=== PATIENT | female | born 1935 | race Caucasian/White ===

== ENCOUNTER 2020-04-28 17:43 | Emergency (ER) | payer MEDICARE, OTHER ==
[~2020-04-28 17:43] MED LIST: ALL DAY ALLERGY10 M2 PO; ASPIRIN CHEWABL81 MG PO; ASPIRIN EC81 MG PO; BUSPAR5 MG PO; CARAFATE1 GM PO; CLARITIN10 MG PO; CRANBERRY200 MG PO; DIAZEPAM 2MG TAB2 MG PO; DIVIGEL1 GM VG; ELMIRON100 MG PO; ESTRACE1 MG VG; FENOFIBRATE48 MG PO; FLUOROMETHOLONE; GABAPENTIN300 MG PO; HCTZ12.5 MG PO; IMODIUM2 MG PO; IRON325 M1 PO; LEXAPRO 10MG TA10 MG PO; LISINOPRIL-HCT1 EACH PO; MACROBID100 MG PO; MAG-OXIDE 400M400 MG PO; METFORMIN HCL500 MG PO; METRONIDAZOLE500 MG PO; NAMENDA 10MG TA10 MG PO; NEURONTIN100 MG PO; NORVASC5 MG PO; OMEPRAZOLE 20MG20 MG PO; PRINIVIL10 MG PO; PRINIVIL20 MG PO; PROBIOTIC1 EAC1 PO; PROMETHEGA12.5 MG/SU PR; SUCRALFATE1 GM/10 ML PO; TOPROL XL 25MG25 MG PO; VITAMIN D-32000 UNIT PO; VITAMIN D22000 UNIT PO; VITAMIN D3 PO; ZANTAC150 MG PO; ZESTRIL5 MG PO; ZIOPTAN 0.00151 EACH AU; ZIOPTAN 0.00151 EACH EYEBOTH; ZIOPTAN 0.00151 EACH OU; ZOFRAN8 MG PO
[2020-04-28 20:02] LABS: BILIRUBIN NEGATIVE (NEGATIVE); BLOOD TRACE-INTACT Ery/uL (NEGATIVE); CLARITY CLEAR (CLEAR); COLOR YELLOW (YELLOW); GLUCOSE (U) NORMAL (NORMAL); LEUKOCYTES NEGATIVE Leu/uL (NEGATIVE); NITRITE NEGATIVE (NEGATIVE); PROTEIN NEGATIVE (NEGATIVE); UROBILINOGEN 0.2 mg/dL (0.2-1.0)
[2020-04-28 20:23] LABS: BACTERIA 4+
[2020-04-28 21:13] LABS: BASOPHIL 0.4 % (0-2); EOSINOPHIL 0.1 % (0-7); HCT 37.2 % (37.0-47.0); HGB 12.5 g/dl (12.5-16.0); LYMPHOCYTE 37.5 % (15-48); MCH 29.5 pg (25.0-31.0); MCHC 33.6 g/dL (32.0-36.0); MCV 87.7 fL (78.0-100.0); MONOCYTE 8.5 % (0-12); MPV 10.1 fL (6.0-9.5); NEUTROPHIL 53.4 % (41-80); NRBC 0; PLT 263 K/uL (150-400); RBC 4.24 M/uL (4.20-5.40); RDW 12.2 % (11.5-14.0)
[2020-04-28 21:50] LABS: CORONAVIRUS 2019 SARS-COV-2 NEGATIVE (NEGATIVE); INFLUENZA A NAA NEGATIVE (NEGATIVE)
[2020-04-28 22:39] LABS: ALBUMIN 3.9 g/dL (3.4-5.0); BILIRUBIN - TOTAL 0.3 mg/dL (0.2-1.0); CREATININE 0.81 mg/dL (0.51-0.95); GLOBULIN (CALCULATION) 3.2 g/dL; POTASSIUM 4.1 mmol/L (3.5-5.1); TOTAL PROTEIN 7.1 g/dL (6.4-8.2)
== END 2020-04-29 00:55 | disposition home or self-care (01) ==
LOC: FER 17:43
PROVIDERS: Emergency Medicine
DX: R41.0 Disorientation, unspecified (principal); F03.90 Unspecified dementia, unspecified severity, without behavioral disturbance, psychotic disturbance, mood disturbance, and anxiety; I48.91 Unspecified atrial fibrillation; E11.9 Type 2 diabetes mellitus without complications; Z88.1 Allergy status to other antibiotic agents; Z20.822 Contact with and (suspected) exposure to COVID-19
CPT/HCPCS: 36415; 70450; 71045; 80053; 81001; 85025; 87088; U0002

== ENCOUNTER 2020-08-18 15:36 | Emergency (ER) | payer MEDICARE, OTHER ==
[2020-08-18 17:45] LABS: BASOPHIL 0.1 % (0-2); EOSINOPHIL 0.1 % (0-7); HCT 36.9 % (37.0-47.0); HGB 12.5 g/dl (12.5-16.0); LYMPHOCYTE 23.4 % (15-48); MCH 30.2 pg (25.0-31.0); MCHC 33.9 g/dL (32.0-36.0); MCV 89.1 fL (78.0-100.0); MONOCYTE 7.2 % (0-12); MPV 10.3 fL (6.0-9.5); NEUTROPHIL 68.8 % (41-80); NRBC 0; PLT 262 K/uL (150-400); RBC 4.14 M/uL (4.20-5.40); RDW 11.9 % (11.5-14.0)
[2020-08-18 17:46] LABS: BILIRUBIN NEGATIVE (NEGATIVE); BLOOD NEGATIVE Ery/uL (NEGATIVE); CLARITY CLEAR (CLEAR); COLOR YELLOW (YELLOW); GLUCOSE (U) NORMAL (NORMAL); LEUKOCYTES 2+ Leu/uL (NEGATIVE); NITRITE NEGATIVE (NEGATIVE); PROTEIN NEGATIVE (NEGATIVE); SPECIFIC GRAVITY 1.015 (1.001-1.030); UROBILINOGEN 0.2 mg/dL (0.2-1.0); pH 7.5 (5.0-9.0)
[2020-08-18 17:53] LABS: BACTERIA 3+; SQUAMOUS EPITHELIAL CELLS RARE; URINARY RBC RARE
[2020-08-18 18:21] LABS: CREATININE 0.92 mg/dL (0.51-0.95); POTASSIUM 4.3 mmol/L (3.5-5.1)
[2020-08-18] MEDS ORDERED: LEVAQUIN500 MG PO (18:49)
== END 2020-08-18 19:31 | disposition home or self-care (01) ==
LOC: FER 15:36
PROVIDERS: Nurse Practitioner Family
DX: N39.0 Urinary tract infection, site not specified (principal); E11.9 Type 2 diabetes mellitus without complications; F03.90 Unspecified dementia, unspecified severity, without behavioral disturbance, psychotic disturbance, mood disturbance, and anxiety; E78.5 Hyperlipidemia, unspecified; Z79.899 Other long term (current) drug therapy; Z79.82 Long term (current) use of aspirin; Z88.2 Allergy status to sulfonamides; Z91.011 Allergy to milk products; Z79.84 Long term (current) use of oral hypoglycemic drugs
CPT/HCPCS: 36415; 80048; 81001; 85025; 87076; 87088; 87186; 99284; J7030

== ENCOUNTER 2020-10-30 08:47 | Emergency (ER) | payer MEDICARE, OTHER ==
[~2020-10-30 08:47] MED LIST changes: +LEVAQUIN500 MG PO
[2020-10-30 09:37] LABS: BASOPHIL 0.3 % (0-2); EOSINOPHIL 0.1 % (0-7); HCT 37.2 % (37.0-47.0); HGB 12.5 g/dl (12.5-16.0); LYMPHOCYTE 14.6 % (15-48); MCH 29.5 pg (25.0-31.0); MCHC 33.6 g/dL (32.0-36.0); MCV 87.7 fL (78.0-100.0); MONOCYTE 6.5 % (0-12); MPV 9.5 fL (6.0-9.5); NEUTROPHIL 78.1 % (41-80); NRBC 0; PLT 283 K/uL (150-400); RBC 4.24 M/uL (4.20-5.40); RDW 11.8 % (11.5-14.0); WBC 7.4 K/uL (4.0-10.5)
[2020-10-30 09:48] LABS: INR 1.07 (0.9-1.2); PROTHROMBIN TIME 13.3 SECONDS (11.8-13.4)
[2020-10-30 09:55] LABS: ALBUMIN 3.8 g/dL (3.4-5.0); BILIRUBIN - TOTAL 0.4 mg/dL (0.2-1.0); BUN/CREAT RATIO (CALC) 11.8 RATIO; CREATININE 0.85 mg/dL (0.51-0.95); GLOBULIN (CALCULATION) 3.3 g/dL; TOTAL PROTEIN 7.1 g/dL (6.4-8.2)
[2020-10-30 10:32] LABS: LACTIC ACID 0.9 mmol/L (0.4-1.9)
[2020-10-30 10:53] LABS: BILIRUBIN NEGATIVE (NEGATIVE); BLOOD NEGATIVE Ery/uL (NEGATIVE); CLARITY CLEAR (CLEAR); GLUCOSE (U) TRACE mg/dL (NORMAL); LEUKOCYTES TRACE Leu/uL (NEGATIVE); NITRITE POSITIVE (NEGATIVE); PROTEIN TRACE (LOW) mg/dL (NEGATIVE); SPECIFIC GRAVITY 1.015 (1.001-1.030)
[2020-10-30 10:54] LABS: COLOR ORANGE (YELLOW)
[2020-10-30 11:02] LABS: AMORPHOUS PHOSPHATE CRYSTALS MODERATE; BACTERIA 1+
== END 2020-10-30 13:57 | disposition home or self-care (01) ==
LOC: FER 08:47 → FMS 12:23 → FER 12:23
PROVIDERS: Emergency Medicine
DX: N39.0 Urinary tract infection, site not specified (principal); I95.1 Orthostatic hypotension; I10 Essential (primary) hypertension; E11.9 Type 2 diabetes mellitus without complications; F03.90 Unspecified dementia, unspecified severity, without behavioral disturbance, psychotic disturbance, mood disturbance, and anxiety; Z90.49 Acquired absence of other specified parts of digestive tract; Z90.710 Acquired absence of both cervix and uterus
CPT/HCPCS: 36415; 71045; 80053; 81001; 83605; 84484; 85025; 85610; 85730; 87040; 87088; 93005; J7040

== ENCOUNTER 2021-07-25 21:58 | Inpatient (IN) | payer MEDICARE, OTHER ==
[~2021-07-25] VITALS: Ht 157.5 cm; Wt 54.5 kg
[2021-07-25 22:27] LABS: BASOPHIL 0.4 % (0-2); EOSINOPHIL 1.2 % (0-7); HCT 34.9 % (37.0-47.0); HGB 11.4 g/dl (12.5-16.0); LYMPHOCYTE 35.8 % (15-48); MCH 28.9 pg (25.0-31.0); MCHC 32.7 g/dL (32.0-36.0); MCV 88.4 fL (78.0-100.0); MONOCYTE 8.2 % (0-12); MPV 9.7 fL (6.0-9.5); NEUTROPHIL 53.8 % (41-80); NRBC 0; PLT 275 K/uL (150-400); RBC 3.95 M/uL (4.20-5.40); RDW 13.1 % (11.5-14.0); WBC 8.5 K/uL (4.0-10.5)
[2021-07-25 22:49] LABS: BILIRUBIN NEGATIVE (NEGATIVE); BLOOD NEGATIVE Ery/uL (NEGATIVE); CLARITY CLEAR (CLEAR); COLOR YELLOW (YELLOW); GLUCOSE (U) NORMAL (NORMAL); LEUKOCYTES TRACE Leu/uL (NEGATIVE); NITRITE POSITIVE (NEGATIVE); PROTEIN NEGATIVE (NEGATIVE); UROBILINOGEN 0.2 mg/dL (0.2-1.0)
[2021-07-25 22:55] LABS: BACTERIA 2+; URINARY RBC RARE
[2021-07-25 23:16] LABS: ALBUMIN 2.7 g/dL (3.4-5.0); BILIRUBIN - TOTAL 0.3 mg/dL (0.2-1.0); BUN/CREAT RATIO (CALC) 24.2 RATIO; CREATININE 0.95 mg/dL (0.51-0.95); GLOBULIN (CALCULATION) 3.8 g/dL; POTASSIUM 4.4 mmol/L (3.5-5.1); TOTAL PROTEIN 6.5 g/dL (6.4-8.2)
[2021-07-25 23:34] LABS: CORONAVIRUS 2019 SARS-COV-2 NEGATIVE (NEGATIVE); INFLUENZA A NAA NEGATIVE (NEGATIVE)
[2021-07-26] MEDS ORDERED: COZAAR50 MG PO (01:45)
[2021-07-26] MEDS ORDERED: NAMENDA 10MG TA10 MG PO (01:46)
[2021-07-26] MEDS ORDERED: MAG-OXIDE 400M400 MG PO (01:48)
[2021-07-26] MEDS ORDERED: VITAMIN B-121000 MC1 PO ×2 (01:48→01:57)
[2021-07-26] MEDS ORDERED: AZO CRANBERRY1 EAC1 PO (01:49)
[2021-07-26] MEDS ORDERED: FEOSOL325 MG PO (01:50)
[2021-07-26] MEDS ORDERED: ASPIRIN EC81 MG PO (01:51)
[2021-07-26] MEDS ORDERED: PROBIOTIC PLUS1 EACH PO (01:53)
[2021-07-26] MEDS ORDERED: PROBIOTIC250 MG PO (01:54)
[2021-07-26] MEDS ORDERED: METFORMIN HCL500 MG PO (01:56)
[2021-07-26] MEDS ORDERED: METFORMIN HCL500 M1 PO (01:59)
[2021-07-26] MEDS ORDERED: FENOFIBRATE48 MG PO (01:59)
[2021-07-26] MEDS ORDERED: MELATONIN5 M2 PO (02:02)
[2021-07-26] MEDS ORDERED: KEFLEX250 MG PO (02:03)
[2021-07-26] MEDS ORDERED: DIAZEPAM 5MG TAB5 MG PO (02:04)
[2021-07-26] MEDS ORDERED: SEROQUEL 25MG T25 MG PO (02:05)
[2021-07-26] MEDS ORDERED: CARAFATE1 GM PO (02:07)
[2021-07-26] MEDS ORDERED: ASCORBIC ACID500 MG PO (02:08)
[2021-07-27 04:07] LABS: BASOPHIL 0.4 % (0-2); HCT 35.6 % (37.0-47.0); HGB 11.1 g/dl (12.5-16.0); LYMPHOCYTE 43.9 % (15-48); MCHC 31.2 g/dL (32.0-36.0); MCV 89.9 fL (78.0-100.0); MONOCYTE 6.5 % (0-12); MPV 9.6 fL (6.0-9.5); NEUTROPHIL 46.7 % (41-80); NRBC 0; PLT 264 K/uL (150-400); RBC 3.96 M/uL (4.20-5.40)
[2021-07-27 04:23] LABS: BUN/CREAT RATIO (CALC) 17.5 RATIO; CREATININE 0.8 mg/dL (0.51-0.95); POTASSIUM 4.2 mmol/L (3.5-5.1)
[2021-07-28 04:32] LABS: BASOPHIL 0.4 % (0-2); EOSINOPHIL 2.2 % (0-7); HCT 32.8 % (37.0-47.0); HGB 10.6 g/dl (12.5-16.0); LYMPHOCYTE 39.4 % (15-48); MCH 28.6 pg (25.0-31.0); MCHC 32.3 g/dL (32.0-36.0); MCV 88.6 fL (78.0-100.0); MONOCYTE 7.9 % (0-12); MPV 9.8 fL (6.0-9.5); NEUTROPHIL 49.6 % (41-80); NRBC 0; PLT 278 K/uL (150-400); WBC 7.8 K/uL (4.0-10.5)
[2021-07-28 04:41] LABS: INR 1.43 (0.9-1.2); PROTHROMBIN TIME 16.7 SECONDS (11.8-13.4)
[2021-07-28 04:49] LABS: BUN/CREAT RATIO (CALC) 12.5 RATIO; CREATININE 0.72 mg/dL (0.51-0.95); POTASSIUM 4.1 mmol/L (3.5-5.1)
[2021-07-29 06:48] LABS: HCT 33.1 % (37.0-47.0); HGB 10.5 g/dl (12.5-16.0); MCH 28.2 pg (25.0-31.0); MCHC 31.7 g/dL (32.0-36.0); MCV 88.7 fL (78.0-100.0); MPV 9.9 fL (6.0-9.5); RBC 3.73 M/uL (4.20-5.40); RDW 13.2 % (11.5-14.0); WBC 8.8 K/uL (4.0-10.5)
[2021-07-29 06:58] LABS: INR 1.71 (0.9-1.2); PROTHROMBIN TIME 19.3 SECONDS (11.8-13.4)
[2021-07-29 07:16] LABS: BUN/CREAT RATIO (CALC) 18.9 RATIO; CREATININE 0.74 mg/dL (0.51-0.95); FT4 (FREE T4) 1.2 ng/dL (0.76-1.46); POTASSIUM 4.4 mmol/L (3.5-5.1)
[2021-07-31] MEDS ORDERED: CEFDINIR300 MG PO (07:27)
[2021-07-31] MEDS ORDERED: ELIQUIS5 MG PO (07:27)
--- NOTE | 2021-07-31 09:38 | NUR ---
PER DAT WITH SHUKRI MCDONALD, PT HAS BEEN ACCEPTED TO THE FACILITY. PER ANGIE, NURSE, PT IS READY FOR DC. PLEASE FAX D/C SUMMARY TO [phone]. CALL REPORT TO [phone] ASK FOR FIRST FLOOR NURSE.
== END 2021-07-31 15:58 | DRG 175 ==
LOC: FER 21:58 → FMS 07-26 00:17
PROVIDERS: Internal Medicine; Nurse Practitioner; Nurse Practitioner Acute Care; ADMIT Internal Medicine
PROC: 0T9B70Z Drainage of Bladder with Drainage Device, Via Natural or Artificial Opening (ICD-10-PCS; principal; 2021-07-25)
DX: I26.99 Other pulmonary embolism without acute cor pulmonale (principal); G93.41 Metabolic encephalopathy; Z16.19 Resistance to other specified beta lactam antibiotics; R64 Cachexia; F05 Delirium due to known physiological condition; N30.00 Acute cystitis without hematuria; Z16.11 Resistance to penicillins; I82.412 Acute embolism and thrombosis of left femoral vein; I82.812 Embolism and thrombosis of superficial veins of left lower extremity; B96.20 Unspecified Escherichia coli [E. coli] as the cause of diseases classified elsewhere; Z20.822 Contact with and (suspected) exposure to COVID-19; R09.02 Hypoxemia; Z66 Do not resuscitate; E04.2 Nontoxic multinodular goiter; F03.90 Unspecified dementia, unspecified severity, without behavioral disturbance, psychotic disturbance, mood disturbance, and anxiety; K21.9 Gastro-esophageal reflux disease without esophagitis; E78.5 Hyperlipidemia, unspecified; I95.9 Hypotension, unspecified; E86.1 Hypovolemia; E86.0 Dehydration; I12.9 Hypertensive chronic kidney disease with stage 1 through stage 4 chronic kidney disease, or unspecified chronic kidney disease; E11.22 Type 2 diabetes mellitus with diabetic chronic kidney disease; N18.30 Chronic kidney disease, stage 3 unspecified; Z98.890 Other specified postprocedural states; Z90.710 Acquired absence of both cervix and uterus; Z82.49 Family history of ischemic heart disease and other diseases of the circulatory system; Z88.2 Allergy status to sulfonamides; Z88.1 Allergy status to other antibiotic agents; Z79.899 Other long term (current) drug therapy; Z87.442 Personal history of urinary calculi; Z68.21 Body mass index [BMI] 21.0-21.9, adult
CPT/HCPCS: 36415; 36600; 71045; 71260; 76536; 80048; 80053; 81001; 82803; 83036; 83605; 83690; 84145; 84439; 84443; 84481; 84484; 85025; 85610; 85730; 87076; 87088; 87186; 93005; 93970; 97110; 97162; 97166; 97530-GP; 97535; J0456; J0692; J0696; J1644; J1650; J2405; J7030; J7050; Q9967; U0002